=== PATIENT | female | born 1945 | race Caucasian/White ===

== ENCOUNTER → 2020-05-25 | Outpatient (CLI) | payer OTHER ==
--- NOTE | 2020-05-28 11:07 | PATH ---
[facility] [address] [place] [address] PATHOLOGY RPT PROCEDURE Name: ELENA DUBOIS Room #: REG SALVADOR Hernadez#: [id number] Admission: 05/25/20 Date of : 43 Discharge: Report #: [id number] Path Case #: [id number] [facility] Accession Number: [id number] . 01 Material submitted: . breast - LEFT BREAST MASS, 2:00, 4CM. Modifiers: left, 2:00 . 01 Clinical history: . BREAST/MAMMOTOME BREAST BIOPSY/LEFT BREAST MASS . 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 (IUV:chuck; 05/27/2020) QMS 05/27/2020 1502 Local . 02 Comment: Specimen type: Needle core biosy Tumor site: Left breast 2:00 4 cm from nipple Tumor quantitation: 1.2 cm in contiguous length in a single core Histologic type: Invasive ductal carcinoma with lobular features Histologic grade: Mesa Grade 2 Tubules, nuclei and mitoses: 3, 2, and 1, respectively LVSI: Not identified Microcalcifications: Not identified Markers: ER, VA, HER-2/valeria and Ki-67 Block: Block A3 . Properly controlled E-cadherin and AE1/AE3 immunohistochemical stains are performed on block A2 and show strong reactivity for both stains within the tumor. Findings support an invasive ductal carcinoma with lobular features. . Co-review: Dr. Lydia Hathaway. . Findings of this case are telephoned to Ms. Montaño at 1:08 p.m. in our [facility] on 05/27/2020. (IUV:chuck 05/27/2020) . 02 Electronically signed: . Katherin Stafford MD, Pathologist NPI- [id number] . 01 Gross description: . The specimen is received in formalin, labeled "Elena Dubois, [place] [address] PATHOLOGY RPT PROCEDURE Name: ELENA DUBOIS [facility] Room #: REG CLI Satya#: [id number] Admission: 05/25/20 Date of : 43 Discharge: Report #: [id number] Path Case #: [id number] breast 2:00 4 cm" and consists of multiple needle cores of yellow breast tissue measuring between 0.7 cm and 2.5 cm in length and 0.3-0.5 cm in diameter which are entirely submitted in A1-A3. The specimen was collected at 9:40 AM on 05/25/2020 and placed in formalin at 9:45 AM. The cold ischemic time is 5 minutes and the total formalin fixation time is greater than 6 hours less than 72 hours. (SDY; 05/26/2020) SYU/SYU 05/27/2020 1453 Local . 02 Pathologist provided ICD-10: C50.912 . 02 CPT . 692459, Z09200, U60098 Specimen Comment: A courtesy copy of this report has been sent to [phone] Specimen Comment: [phone] Specimen Comment: Report sent to / DR MARTIN Performed at: [address] [facility] [address], [place], [place] [id number] MD Maikol Sheth MD Phone: [phone] Performed at: [address] [facility] [address] [id number] MD Katherin Stafford MD Phone: [phone]
== END | disposition home or self-care (01) ==
LOC: BC 08:55
PROVIDERS: ATTEND Internal Medicine
DX: N63.21 Unspecified lump in the left breast, upper outer quadrant (principal); C50.412 Malignant neoplasm of upper-outer quadrant of left female breast; Z79.899 Other long term (current) drug therapy; Z98.890 Other specified postprocedural states

== ENCOUNTER → 2020-12-17 | Outpatient (CLI) | payer OTHER ==
--- NOTE | 2020-12-17 11:58 | TEE ---
[facility] [place] [address] TRANSESOPHAGEAL ECHOCARDIOGRAM Name: JOHANNE GARCÍA Room #: REG [facility]#: [id number] Admission: 12/17/20 Attend Phys: Miakl Jon MD Discharge: Date of : 43 Report #: [id number] THIS REPORT FOR: cc: Mikal Jon MD, John L. MD Park, Jin S. MD ~ APPROVED REPORT Study performed: 12/17/2020 10:10:31 EXAM: Comprehensive 2D, Doppler, and color-flow Echocardiogram Patient Location: Out-Patient Room #: 2 Status: routine BSA: 1.85 HR: 72 bpm BP: 102/64 mmHg Rhythm: NSR Other Information Study Quality: Good Indications Dyspnea S^P Covid 2D Dimensions RVDd: 29.37 mm IVSd: 8.10 (7-11mm) LVOT Diam: 17.59 (18-24mm) LVDd: 40.09 mm PWd: 7.50 (7-11mm) Ascending Ao: 23.61 (22-36mm) LVDs: 27.91 (25-40mm) Left Atrium: 33.67 (27-40mm) Aortic Root: 25.39 mm IVC: 17.00 mm Volumes Left Atrial Volume (Systole) Single Plane 4CH: 30.86 mL Single Plane 2CH: 27.22 mL LA ESV Index: 18.00 mL/m2 Aortic Valve AoV Peak Mihai.: 1.22 m/s AO Peak Gr.: 5.97 mmHg LVOT Max P.97 mmHg LVOT Max V: 1.00 m/s [facility] [address] [place] [address] TRANSESOPHAGEAL ECHOCARDIOGRAM Name: JOHANNE GARCÍA Room #: REG CL [facility]#: [id number] Admission: 12/17/20 Attend Phys: Mikal Jon MD Discharge: Date of : 43 Report #: [id number] MERCEDES Vmax: 1.98 cm2 Mitral Valve E/A Ratio: 0.9 MV Decel. Time: 221.77 ms MV E Max Mihai.: 0.72 m/s MV A Mihai.: 0.76 m/s MV PHT: 64.31 ms IVRT: 129.18 ms Pulmonary Valve PV Peak Mihai.: 0.76 m/s PV Peak Gr.: 2.30 mmHg Pulmonary Vein P Vein S: 0.55 m/s P Vein A: 0.26 m/s P Vein D: 0.34 m/s P Vein A Dur.: 115.3 msec P Vein S/D Ratio: 1.62 Tricuspid Valve TR Peak Mihai.: 2.56 m/s TR Peak Gr.: 26.31 mmHg PA Pressure: 31.00 mmHg Left Ventricle The left ventricle is normal size. There is normal LV segmental wall motion. There is normal left ventricular wall thickness. Left ventricular systolic function is normal. The left ventricular ejection fraction is within the normal range. LVEF is 55-60%. Grade I - abnormal relaxation pattern. Right Ventricle The right ventricle is normal size. The right ventricular systolic function is normal. Atria The left atrium size is normal. The right atrium size is normal. Aortic Valve The aortic valve is normal in structure. Trace aortic regurgitation. There is no aortic valvular stenosis. Mitral Valve The mitral valve is normal in structure. Mild mitral regurgitation. No evidence of mitral valve stenosis. [facility] [address] [place] [address] TRANSESOPHAGEAL ECHOCARDIOGRAM Name: RAQUELJOHANNETomi JAVIER Room #: REG CL [facility]#: [id number] Admission: 12/17/20 Attend Phys: Mikal Jon MD Discharge: Date of : 43 Report #: [id number] Tricuspid Valve The tricuspid valve is normal in structure. There is trace tricuspid regurgitation. Estimated PAP 31 mmHg. Pulmonic Valve The pulmonary valve is normal in structure. There is no pulmonic valvular regurgitation. Great Vessels The aortic root is normal in size. IVC is normal in size and collapses >50% with inspiration. Pericardium There is no pericardial effusion. <Conclusion> The left ventricle is normal size. There is normal left ventricular wall thickness. Left ventricular systolic function is normal. Grade I - abnormal relaxation pattern. The right ventricle is normal size. The left atrium size is normal. Trace aortic regurgitation. Mild mitral regurgitation. <ELECTRONICALLY SIGNED> By: Eddie Montez MD 12/17/20 1157 1157 115 Eddie Montez MD /INF
--- NOTE | 2020-12-17 14:08 | EXE ---
[facility] [place] [address] [place] [address] STRESS ECHOCARDIOGRAM Name: JOHANNE GARCÍA Room #: REG SALVADOR TimmyTimmy#: [id number] Admission: 12/17/20 Attend Phys: Mikal Jon MD Discharge: Date of : 43 Report #: [id number] THIS REPORT FOR: cc: Mikal Jon MD, John L. MD Park, Jin S. MD ~ APPROVED REPORT Study performed: 12/17/2020 10:58:27 Exam: Stress Echocardiogram Indication: Dyspnea Patient Location: Out-Patient Stress Nurse: Becki Mahan RN Room #: 2 Status: routine Ht: 5 ft 3 in HR: 82 bpm BP: 102/64 mmHg Rhythm: NSR Medical History Medical History: Post Covid 19 Pretest Chest Pain Characteristics: Dyspnea Exercise History: Physically active Procedure The patient underwent an Exercise Stress Test using the Austin Protocol. Blood pressure, heart rate, and EKG were monitored. An Echocardiogram was performed by paint prep technician in four stages in quad fashion. At peak stress, four selected images were obtained and placed side by side with resting images for comparison. Stress Test Details Stress Test: Exercise stress testing was performed using a Austin protocol. HR Resting HR: 82 bpm Max Heart Rate (APMHR): 144 bpm Max HR Achieved: 98 bpm Target HR (85% APMHR): 122 bpm % of APMHR: 68 Recovery HR: 75 bpm HR response to stress: Normal HR response to stress BP [facility] [address] [place] [address] STRESS ECHOCARDIOGRAM Name: JOHANNE GARCÍA Room #: REG [facility].#: [id number] Admission: 12/17/20 Attend Phys: Mikal Jon MD Discharge: Date of : 43 Report #: [id number] Resting BP: 102/64 mmHg Max BP: 170/60 mmHg Recovery BP: 120/56 mmHg BP response to stress: Normal blood pressure response to stress. ECG Resting ECG: Sinus Rhythm Stress ECG: Sinus Rhythm, nonspecific ST-T abnormalities ST Change: Non-ischemic Clinical Reason for Termination: Dyspnea Stress Symptoms: Dyspnea Exercise duration: 4 min 12 sec Highest Stage Achieved: Stage 2: 2.5 mph at 12% grade. Exercise capacity: 5.3 METs Overall Exercise Capacity for Age: Poor Pre-Stress Echo The resting Echocardiogram showed normal left ventricular contractility with an estimated Ejection Fraction of about >55%. The resting echocardiogram demonstrated normal wall motion in all wall segments. Post-Stress Echo The stress Echocardiogram showed normal left ventricular contractility with an estimated Ejection Fraction of about 65%. Compared to rest, there were no stress-induced wall motion abnormalities. Clinical No clinical or ECG evidence for ischemia. Conclusion Clinical Response: Non-ischemic Exercise Capacity: Below Average Stress ECG Response: Non-ischemic Stress Echo Images: Non-ischemic Non-diagnostic study due to inability of the patient to achieve 85% of maximal HR. No prior study available for comparison. Other Information Study Quality: Good <Conclusion> [facility] [address] [place] [address] STRESS ECHOCARDIOGRAM Name: RAQUELJOHANNE YAYA Room #: REG [facility].#: [id number] Admission: 12/17/20 Attend Phys: Mikal Jon MD Discharge: Date of : 43 Report #: [id number] Non-diagnostic study due to inability of the patient to achieve 85% of maximal HR. <ELECTRONICALLY SIGNED> By: Eddie Montez MD 12/17/20 1408 07 07 Eddie Montez MD /INF
== END ==
LOC: CV 08:10 → EDSTATUS 09:15 → CV 09:39
PROVIDERS: ATTEND Internal Medicine
DX: I34.0 Nonrheumatic mitral (valve) insufficiency (principal)